=== PATIENT | female | born 1975 | race Caucasian/White ===

== ENCOUNTER → 2017-08-10 | Outpatient (CLI) | payer BC ==
[~2017-08-10] MED LIST: GADAVIST IV PRN
--- NOTE | 2017-08-10 10:46 | DIAGNOSTIC IMAGING REPORT ---
MRI OF THE BRAIN AND PITUITARY WITH AND WITHOUT CONTRAST CLINICAL HISTORY: Hyperprolactinemia. COMPARISON STUDY: MRI of the brain April 04, 2016 and March 03, 2013. TECHNIQUE: Utilizing a 1.5 An magnet, multiplanar, multi echo imaging of the brain and pituitary was performed pre and postcontrast administration with dynamic enhancement. Injection of 8.5 cc of Gadavist IV was uneventful. FINDINGS: There are no foci of restricted diffusion. No acute intracranial hemorrhage, midline shift or mass effect is present. Ventricular system is unremarkable. Basilar cisterns are patent. There are no extra axial collections. Flow-voids for the major intracranial vessels are present. A 1 cm T2 hyperintense focus within the clivus is unchanged since MRI of March 03, 2013. This is benign. A few small white matter T2 hyperintense foci are unchanged. No new foci of signal abnormality present. Calvarial signal is maintained. Orbits and sinuses are unremarkable. Asymmetric prominence of the right aspect of the pituitary gland is again noted. Note is made of a 0.7 x 0.3 cm hypoenhancing lesion within the right aspect of the gland shown best on coronal image 307. This is shown on several of the dynamic postcontrast sequences. This was shown on MRI of March 03, 2013 but not visualized on study of April 04, 2016. No additional pituitary lesions are identified. Infundibulum is unremarkable. Optic chiasm is normal. IMPRESSION: 1. 7 mm x 3 mm hypoenhancing focus within the right aspect of the pituitary gland which favors a microadenoma which is similar to MRI of March 03, 2013. Lesion not visualized on MRI of April 04, 2016. 2. No acute intracranial findings. Electronically signed by: Tito Moe M.D. 08/10/2017 10:44 AM Dictated Date/Time: 08/10/2017 10:06 AM
== END | disposition home or self-care (01) ==
LOC: C.MRIBC 08:28
PROVIDERS: ATTEND Psychiatry & Neurology Neurology
DX: E22.1 Hyperprolactinemia (principal)